=== PATIENT | female | born 2000 | race Hispanic/Latino ===

== ENCOUNTER 2022-09-09 19:38 | Emergency (ER) | payer BC, OTHER ==
[2022-09-09 20:23] LABS: Bilirubin Neg (Negative); Blood, Urine 250 (Negative); Clarity Slightly Cloudy (Clear); Glucose, Urine (Dipstick) Normal (Negative); Ketone, Urine Negative (Negative); Leukocyte 500 (Negative); Nitrite Negative (Negative); Protein, Urine (Dipstick) 30 mg/dl (Neg-Trace); Urobilinogen Normal mg/dL (Less than 2)
[2022-09-09 20:41] LABS: Bacteria/HPF 2+ HPF (None Seen); Mucous/LPF None Seen LPF (<2+); RBC/HPF 21-50 HPF (0-3); Renal Epithelial 0-3 HPF (None Seen); Squamous Epithelial 0-3 HPF (0-3); WBC/HPF 21-50 HPF (0-3)
[2022-09-09 20:57] LABS: Pregnancy Test - Urine (BHCG) Negative (Negative); Pregu Control Background? CLEAR/WHITE (CLR/WHITE); Pregu Control Bar Appear? YES (CONTROL BAR)
== END 2022-09-09 21:20 | disposition home or self-care (01) ==
LOC: CSHERS 19:38
DX: N30.91 Cystitis, unspecified with hematuria (principal)
CPT/HCPCS: 81003; 81015; 81025; 87086; 99283